=== PATIENT | male | born 1960 | race Caucasian/White ===

== ENCOUNTER 2021-09-14 03:44 | Inpatient (IN) | payer BC, OTHER ==
[~2021-09-14] VITALS: Ht 180.3 cm; Wt 100.7 kg
[~2021-09-14 03:44] MED LIST: MORP30TA63 PO
--- NOTE | 2021-09-14 03:52 | NUR ---
Pt to CT via stretcher in stable condition.
--- NOTE | 2021-09-14 04:00 | NUR ---
Pt returns from CT. VSS, NAD. Dr. Rader at bedside assessing pt.
--- NOTE | 2021-09-14 04:15 | NUR ---
Dr. Rader on phone with stat rad. CT Head with contrast ordered.
[2021-09-14] MEDS ORDERED: IOHEXOL 350 mgI/mL, 150 ML INFUS..BTL IV ONE (04:28)
[2021-09-14 04:50] VITALS: BP_SYST 130
--- NOTE | 2021-09-14 05:22 | NUR ---
pt off to CT for CTA accompanied with nurse.
--- NOTE | 2021-09-14 05:52 | NUR ---
Pt taken to CT angio with VSS, consent signed by RN and Dr. Rader d/t unable to reach and pt confused. Pt states is taking Metformin, Dr. Rader made aware and states ok to go to CT angio and to give bolus of NS s/p scan. Pt returned to ED with VSS, pt now more oriented, able to give and location. NS bolus started per MD order.
[2021-09-14] MEDS ORDERED: NACL 0.9% 1,000 ML IV STA (05:57)
[2021-09-14] MEDS ORDERED: KETOROLAC TROMETHAMINE 15 MG VIAL IVP ONE (06:45)
[2021-09-14] MEDS ORDERED: MORPHINE 2 MG/ML INJ. SYRINGE IVP ONE (06:45)
[2021-09-14] MEDS ORDERED: NACL 0.9% 1,000 ML IV ONE (06:45)
--- NOTE | 2021-09-14 07:15 | NUR ---
RECEIVED PT FROM [facility]. PT HAS C/O ALOC, AT HIM UNABLE TO AROUSE, PT IS AAOX1 TO SELF, ABLE TO COMMUNICATE NEEDS AND FOLLOW COMMANDS. PT HAS 2 18 GIVE CATH TO LAC. SITE WNL. PT DENIES PAIN. URINE SAMPLE OBTAINED.
[2021-09-14 07:50] LABS: BASOPHILS # (AUTO) 0.1 K/uL (0.0-0.2); BASOPHILS % (AUTO) 0.9 % (0.0-2.0); EOSINOPHILS # (AUTO) 0.1 K/uL (0.0-0.4); EOSINOPHILS % (AUTO) 1.9 % (0.0-4.0); HEMATOCRIT 37.9 % (36-54); HEMOGLOBIN 13.9 g/dL (14.0-18.0); LYMPHOCYTES # (AUTO) 2.2 K/uL (1.0-5.5); LYMPHOCYTES % (AUTO) 34.2 % (20.5-51.5); MEAN CORPUSCULAR HEMOGLOBIN 29 pg (27-31); MEAN CORPUSCULAR HGB CONC 37 % (32-36); MEAN CORPUSCULAR VOLUME 79 fL (79.0-98.0); MONOCYTES # (AUTO) 0.6 K/uL (0.0-1.0); MONOCYTES % (AUTO) 8.6 % (1.7-9.3); NEUTROPHILS # (AUTO) 3.5 K/uL (1.8-7.7); NEUTROPHILS % (AUTO) 54.4 % (40.0-70.0); PLATELET COUNT (AUTO) 238 K/uL (130-430); RED BLOOD CELL COUNT(AUTO) 4.78 MIL/uL (4.2-6.2); RED CELL DISTRIBUTION WIDTH 14.9 % (9.0-15.0); WHITE BLOOD COUNT (AUTO) 6.4 K/uL (4.8-10.8)
--- NOTE | 2021-09-14 07:55 | NUR ---
Admit bed requested Patient will be admitted to care of . Admitted to Tele unit. Diagnosis Acute Encephalopathy Inpatient (Yes or No) Yes Observation (Yes or No) No Orientation concerns or request close to nursing station (Yes or No) No Covid Status Negative On vent or bipap No Isolation requirements No Needs a sitter No From Home (Yes or if No enter name of facility) Yes Requires Dialysis (Yes or No) No Med Rec Completed (Yes of No) Pending
[2021-09-14 08:03] LABS: INR 1.5 (0.80-1.20); PROTHROMBIN TIME 14.9 SECS (9.5-12.5)
--- NOTE | 2021-09-14 08:20 | NUR ---
Covid swab collected from nares.
--- NOTE | 2021-09-14 08:58 | NUR ---
PT'S CLIF CALLED AND REQUESTED PT BE TRANSFERRED TO [facility]. INFORMED PT I WILL CALL ADMITTING MD AND MAKE HIM AWARE. REQUESTED THAT SHE BRING IN A LIST OF HER HOME MEDS. SHE STATED SHE WOULD BRING IT IN NOW.
[2021-09-14 09:03] LABS: ANION GAP 11 (5-15); CALCIUM 7.9 mg/dL (8.4-11.0); CHLORIDE 102 mmol/L (98-107); CREATININE 1.15 mg/dL (0.55-1.30); GLUCOSE 343 mg/dL (70-99); SODIUM SERUM 137 mmol/L (136-145); UREA NITROGEN, BLOOD 24 mg/dL (8-21)
[2021-09-14 09:04] LABS: GFR AFRICAN AMERICAN 83 mL/min (>90)
[2021-09-14 09:18] LABS: ALBUMIN 2.9 g/dL (3.4-4.8); ASPARTATE AMINOTRANSFERASE 27 U/L (10-37); THYROID STIMULATING HORMONE 3.75 uIu/mL (0.36-3.74); TOTAL BILIRUBIN 0.5 mg/dL (0.0-1.0)
[2021-09-14 09:24] LABS: ACETAMINOPHEN < 1 ug/mL (1-30); ALANINE AMINOTRANSFERASE 35 U/L (12-78); ALCOHOL, BLOOD < 3 mg/dL (<10)
[2021-09-14] MEDS ORDERED: MAGN400T10 PO (10:24)
[2021-09-14] MEDS ORDERED: COLC0.6T67 PO (10:24)
[2021-09-14] MEDS ORDERED: NALT50TA PO (10:24)
[2021-09-14] MEDS ORDERED: TIZA2CAP7 PO (10:24)
[2021-09-14] MEDS ORDERED: NOR10 PO (10:24)
[2021-09-14] MEDS ORDERED: METF-518 PO (10:24)
[2021-09-14] MEDS ORDERED: RIVA20TA PO (10:24)
[2021-09-14] MEDS ORDERED: VITD2000 PO (10:24)
[2021-09-14] MEDS ORDERED: RIVA15TA PO (10:24)
[2021-09-14] MEDS ORDERED: PREG75CA PO (10:24)
[2021-09-14] MEDS ORDERED: INSU100V11 SQ (10:24)
[2021-09-14] MEDS ORDERED: CYAN100010 PO (10:24)
[2021-09-14] MEDS ORDERED: FAMO40TA7 PO (10:24)
--- NOTE | 2021-09-14 10:25 | NUR ---
DR. PRADO MADE AWARE PT WOULD LIKE PT TO TRANSFER TO [facility], HE STATED HE WILL MAKE THE REQUEST. PT'S CLIF MADE AWARE. CLIF ALSO MADE AWARE PT WILL BE TRANSFERING TO ICU BED 127.
[2021-09-14] MEDS ORDERED: ACETAMINOPHEN 500 MG TABLET PO PRN (10:30)
[2021-09-14] MEDS ORDERED: ONDANSETRON HCL 4 MG/2 ML VIAL IVP PRN (10:30)
[2021-09-14] MEDS ORDERED: ZOLPIDEM TARTRATE 5 MG TABLET PO PRN (10:30)
[2021-09-14] MEDS ORDERED: DOCUSATE SODIUM 100 MG/10 ML UDC PO PRN (10:30)
[2021-09-14] MEDS ORDERED: HYDROcodone/ACETAMIN 7.5-325 MG TAB PO PRN (10:30)
[2021-09-14] MEDS ORDERED: guaiFENesin/DEXTROMETHORPHAN 10 ML UDC PO PRN (10:30)
[2021-09-14] MEDS: NACL 0.9% 1,000 ML IV SCH (10:30)
[2021-09-14 11:07] LABS: BILIRUBIN,URINE NEGATIVE (NEGATIVE); BLOOD, URINE NEGATIVE (NEGATIVE); CLARITY/URINE CLEAR (CLEAR); COLOR,URINE YELLOW (YELLOW); GLUCOSE,URINE 3+ (NEGATIVE); KETONES,URINE NEGATIVE (NEGATIVE); LEUKOCYTE ESTERASE ,URINE NEGATIVE (NEGATIVE); NITRITE, URINE NEGATIVE (NEGATIVE); PROTEIN URINE NEGATIVE (NEGATIVE); UROBILINOGEN,URINE 0.2 (0.2-1.0)
[2021-09-14 11:09] LABS: BARBITURATE, URINE NEGATIVE (NEG <=200); BENZODIAZEPINE, URINE NEGATIVE (NEG <=150); CANNABINOID, URINE NEGATIVE (NEG <=50); COCAINE, URINE NEGATIVE (NEG <=150); METHAMPHETAMINES SCREEN,URINE NEGATIVE (NEG <=500); OPIATE, URINE POSITIVE (NEG <=100); PHENCYCLIDINE SCREEN,URINE NEGATIVE (NEG <=25); UR TRICYCLIC ANTIDEPRESSANTS NEGATIVE (NEG <=300); URINE AMPHETAMINE NEGATIVE (NEG <=500); URINE METHADONE NEGATIVE (NEG <=200); URINE OXYCODONE SCREEN NEGATIVE (NEG <=100); URINE PROPOXYPHENE SCREEN NEGATIVE (NEG <=300)
--- NOTE | 2021-09-14 11:21 | NUR ---
DR. PRADO AT BEDSIDE.
[2021-09-14 11:22] LABS: FREE T4 (FREE THYROXINE) 0.9 ng/dl (0.8-1.5); PHOSPHORUS 3.2 mg/dL (2.7-4.5); THYROID STIMULATING HORMONE 3.07 uIu/mL (0.36-3.74)
--- NOTE | 2021-09-14 11:24 | NUR ---
MRI QUESTIONAIRE OBTAINED.
[2021-09-14] MEDS ORDERED: D5W 1,000 ML IV PRN (11:30)
[2021-09-14] MEDS ORDERED: GLUCOSE (DEXTROSE) ORAL GEL -Adults PO PRN (11:30)
[2021-09-14] MEDS ORDERED: DEXTROSE 50% JECT 50 ML DISP.SYRIN IVP PRN (11:30)
[2021-09-14] MEDS ORDERED: LORazepam 2 MG/ML VIAL ONE (11:57)
[2021-09-14] MEDS ORDERED: DIAZEPAM 10 MG/2 ML DISP.SYRIN IVP ONE (12:00)
[2021-09-14] MEDS ORDERED: LORazepam 2 MG/ML VIAL IVP ONE (12:00)
--- NOTE | 2021-09-14 12:03 | NUR ---
PT HAS UNCONTROLLABLE SHAKING, STATES HE IS HAVING MUSCLE SPASMS, PAIN 10/1O, HR 150S, BP 200/101. MORPHINE 3MG IVP GIVEN. PT NOT RESPONDING TO PAIN RELIEF. DR. AC AT BEDSIDE AND STATED SHE WILL ORDER ATIVAN IVP. ATIVAN 2MG IVP GIVEN. PT NOW CALM. DR. PRADO PAGED TO REPORT INCIDENT, AWAITING CALL BACK.
[2021-09-14] MEDS: MORPHINE 4 MG INJ. 4 MG/ML VIAL IVP PRN ×2 (12:08→16:12)
--- NOTE | 2021-09-14 12:22 | NUR ---
REPORTED TO DR. PRADO PT HAS 30 EPISODE OF UNCONTROLLED SHAKING, SBP 200, HR IN THE 150S. PT STATES HE IS HAVING MUSCLE SPASMS. PT BS 224. TEMP WNL. ATIVAN 2MG IVP WAS GIVEN AND MS 3MG IVP GIVEN. DR. PRADO STATED TO MAINTAIN MONITORING AND ANYTHING THAT PRESENT AGAIN PLEASE CALL THE NEURO CONSULT.
--- NOTE | 2021-09-14 12:30 | NUR ---
BS IN 230, PT S/P MS AND ATIVAN, LETHARGIC, WITH ALOC. GLUCOSE HELD.
[2021-09-14] MEDS ORDERED: hydrALAZINE HCL 20 MG/ML VIAL IVP PRN (13:00)
[2021-09-14] MEDS ORDERED: amLODIPine BESYLATE 10 MG TABLET PO ONE (13:15)
--- NOTE | 2021-09-14 13:50 | NUR ---
Patient will be admitted to care of [facility] AM[facility]. Admitted to TELE unit. Will go to room 105A. Belongings list completed. Complete and up to date summary report printed. SBAR report to be given at bedside with opportunity for questions.
--- NOTE | 2021-09-14 14:05 | NUR ---
ADMISSION NOTE Received patient from ER via gurney. Patient admitted with diagnosis of r/t stroke. Patient is awake, alert, oriented X 2. Patient oriented to hospital room, call light, toileting, pain management and safety-teach back done. Patient informed tonya nurse and that their room number is 105A. Personal belongings checked and Belongings List documented. Call light within reach.
[2021-09-14 14:45] VITALS: BP_SYST 170
--- NOTE | 2021-09-14 15:00 | NUR ---
patient has severe shaking, stated tremors begin at the back neck and radiate to lower back pain. seizure precaution initiated. oxygen 10 liters simple mask saturation goes up to 93%. patient able to answer question. family at the bedside.
[2021-09-14] MEDS: PREGABALIN 25 MG CAPSULE (LYRICA) PO SCH ×2 (15:14→20:23)
[2021-09-14 15:24] VITALS: BP_SYST 170
--- NOTE | 2021-09-14 15:24 | NUR ---
CONSULTATION PAGED/CALLED Reason for Consultation: [] ALOC Person Who was Notified: [] DR Nel GONZALES Consulting Physician: [] DR Nel GONZALES Cdl [employer]icated [employer] Specialty: [] NEURO Ordering Physician: [] DR PRADO
[2021-09-14 15:32] VITALS: BP_SYST 155
--- NOTE | 2021-09-14 16:50 | NUR ---
soils technician is here earlier to last picker patient for mri scheduled. patient is having severe spine spasm , shaking alot. morphinr 3 mg ivp administered. informed tech to come back later, pt is not safe at this time.
[2021-09-14] MEDS ORDERED: COMMUNICATION ORDER XX ONE (17:30)
--- NOTE | 2021-09-14 17:32 | NUR ---
bs 194. held insulin coverage patient, change of condition.
[2021-09-14] MEDS ORDERED: INSULIN GLARGINE 100 UNITS/ML 10 ML VIAL SUBCUT SCH (18:00)
[2021-09-14] MEDS ORDERED: RIVAROXABAN 10 MG TABLET PO SCH (18:00)
[2021-09-14] MEDS: metFORMIN HCL 500 MG TABLET PO SCH (18:08)
[2021-09-14] MEDS: METHOCARBAMOL IV PRN (19:01)
[2021-09-14] MEDS: NS IV PRN (19:01)
--- NOTE | 2021-09-14 19:17 | NUR ---
WOUND CARE PROVIDED. WOUND PHOTOS TAKEN AND PLACE AT CHART.
[2021-09-14 20:00] VITALS: BP_SYST 140
[2021-09-14] MEDS: INSULIN LISPRO SLIDING SCALE 100 UNITS/ML VIAL (humaLOG) SUBCUT PRN (20:27)
[2021-09-15 00:06] VITALS: BP_SYST 156
[2021-09-15] MEDS: MORPHINE 4 MG INJ. 4 MG/ML VIAL IVP PRN ×2 (02:46→06:40)
[2021-09-15 04:00] VITALS: BP_SYST 142
[2021-09-15] MEDS: METHOCARBAMOL IV PRN (04:25)
[2021-09-15] MEDS: NS IV PRN (04:25)
--- NOTE | 2021-09-15 04:26 | NUR ---
PATIENT WAS NOTED WITH SEVERE SPASMS AND SHAKING AT 0250. PATIENT WAS JUST SHAKING UNCONTROLLABLY AND WAS IN SEVERE PAIN. AAOX4. RESPONDING WELL TO VERBAL STIMULI. GIVEN WITH MORPHINE PRN FOR PAIN. CHARTED ON APR. ROBAXIN IVPB WAS ALSO STARTED FOR MUSCLE SPASM. PATIENT WAS MONITORED FOR MORE SPASMS AND COMFORTED AT BEDSIDE.
[2021-09-15] MEDS: NACL 0.9% 1,000 ML IV SCH (04:30)
[2021-09-15 05:14] LABS: BASOPHILS # (AUTO) 0.1 K/uL (0.0-0.2); BASOPHILS % (AUTO) 0.8 % (0.0-2.0); EOSINOPHILS # (AUTO) 0.2 K/uL (0.0-0.4); EOSINOPHILS % (AUTO) 2.1 % (0.0-4.0); HEMATOCRIT 42.1 % (36-54); HEMOGLOBIN 14.6 g/dL (14.0-18.0); LYMPHOCYTES # (AUTO) 2.4 K/uL (1.0-5.5); LYMPHOCYTES % (AUTO) 34.4 % (20.5-51.5); MEAN CORPUSCULAR HEMOGLOBIN 28 pg (27-31); MEAN CORPUSCULAR HGB CONC 35 % (32-36); MEAN CORPUSCULAR VOLUME 80 fL (79.0-98.0); MONOCYTES # (AUTO) 0.6 K/uL (0.0-1.0); MONOCYTES % (AUTO) 8.4 % (1.7-9.3); NEUTROPHILS # (AUTO) 3.9 K/uL (1.8-7.7); NEUTROPHILS % (AUTO) 54.3 % (40.0-70.0); PLATELET COUNT (AUTO) 248 K/uL (130-430); RED BLOOD CELL COUNT(AUTO) 5.29 MIL/uL (4.2-6.2); RED CELL DISTRIBUTION WIDTH 14.8 % (9.0-15.0); WHITE BLOOD COUNT (AUTO) 7.1 K/uL (4.8-10.8)
--- NOTE | 2021-09-15 06:30 | NUR ---
NOTED PATIENT WITH GENERALIZED INVOLUNTARY SPASM. AAOX4. RESPONDS TO WHEN TALKED TO. SPASM LASTED 2 MINUTES. O2 WAS GIVEN VIA NC AT 4 LPM. INSTRUCTED PATIENT TO KEEP O2 AT THIS TIME. GIVEN PRN MORPHINE FOR SEVERE NECK PAIN. MONITORED CLOSELY.
[2021-09-15] MEDS: INSULIN LISPRO SLIDING SCALE 100 UNITS/ML VIAL (humaLOG) SUBCUT PRN ×2 (06:38→11:15)
--- NOTE | 2021-09-15 07:25 | NUR ---
OPENING NOTE RECIVED SBAR FROM NIGHT RN. PT IS IN BED. RESPIRATION IS EVEN, REGULAR, AND NON-LABORED. BED IS LOW AND LOCKED. CALL LIGHT WITHIN REACH.
[2021-09-15 08:00] VITALS: BP_SYST 147
--- NOTE | 2021-09-15 08:26 | NUR ---
MD SIMMONS BEDSIDE EXAMINING PT
[2021-09-15] MEDS: metFORMIN HCL 500 MG TABLET PO SCH (08:28)
[2021-09-15] MEDS: PREGABALIN 25 MG CAPSULE (LYRICA) PO SCH (08:28)
[2021-09-15 08:35] LABS: POTASSIUM 3.6 mmol/L (3.5-5.1)
[2021-09-15] MEDS ORDERED: FENOFIBRATE 160 MG TABLET PO SCH (09:00)
[2021-09-15] MEDS ORDERED: amLODIPine BESYLATE 10 MG TABLET PO SCH (09:00)
[2021-09-15] MEDS ORDERED: POTASSIUM CHLORIDE 20 MEQ TAB.PRT.SR PO PRN (09:00)
[2021-09-15] MEDS ORDERED: PANTOPRAZOLE SODIUM 40 MG TAB PO SCH (09:00)
[2021-09-15] MEDS ORDERED: ATORVASTATIN 20 MG TABLET PO SCH (09:00)
[2021-09-15 10:12] LABS: CALCIUM 8.8 mg/dL (8.4-11.0); CREATININE 1.09 mg/dL (0.55-1.30)
--- NOTE | 2021-09-15 12:00 | NUR ---
WOUND CARE PROVIDED WOUND CARE SEE MST SHIFT ASSESSMENT
[2021-09-15 12:40] VITALS: BP_SYST 159
--- NOTE | 2021-09-15 13:05 | NUR ---
MD VANCE AT BEDSIDE ASSESSING PT
--- NOTE | 2021-09-15 13:07 | NUR ---
Dietitian Recommendations * [facility] diet, Mike BID (supplements yields 190 kcal/day, 5 gm protein/day) LP, MS, RD Please refer to Nutrition Assessment for details. Addendum: 09/15/21 at [address] Amended: Links added.
--- NOTE | 2021-09-15 13:15 | NUR ---
DISCHARGE SPOKE WITH . HI TO [facility]
[2021-09-15 13:35] VITALS: BP_SYST 159
--- NOTE | 2021-09-15 15:00 | NUR ---
D/C Patient Patient given medication reconciliation form and D/C instructions. Exit Care provided. Patient verbalized understanding. MD discussed with patient the results and treatment provided. Patient escorted with wheelchair to awaiting care for discharge to home. Patient in stable condition, ID band removed. IV catheter removed, intact and dressing applied, no active bleeding. Patient educated on pain management. All belongings sent with patient.
--- NOTE | 2021-09-19 08:21 | NUR ---
Dispo code 01
== END 2021-09-15 16:46 | disposition home or self-care (01) | DRG 71 ==
LOC: SED 03:44 → STU 06:43
PROVIDERS: ADMIT Family Medicine; ATTEND Family Medicine
DX: G93.40 Encephalopathy, unspecified (principal); E44.0 Moderate protein-calorie malnutrition; G37.3 Acute transverse myelitis in demyelinating disease of central nervous system; Z20.822 Contact with and (suspected) exposure to COVID-19; E11.9 Type 2 diabetes mellitus without complications; Z79.4 Long term (current) use of insulin; Z88.5 Allergy status to narcotic agent; Z88.8 Allergy status to other drugs, medicaments and biological substances; Z68.31 Body mass index [BMI] 31.0-31.9, adult
CPT/HCPCS: 36415; 70450-TC; 70496; 70498; 71045; 72125-TC; 72128; 72131; 76376; 80048; 80053; 80061; 80307; 81003; 82140; 82150; 82550; 82962; 83036; 83605; 83690; 83735; 83880; 84100; 84439; 84443; 84484; 85025; 85610-TC; 85730-TC; 87040; 93005; 96374; 96375; 99285; G0378; G0480; G0482; J1815; J1885; J2060; J2270; J2800; J7050; Q9967